=== PATIENT | female | born 1990 | race Caucasian/White ===

== ENCOUNTER 2016-12-25 13:13 | Outpatient (CLI) | payer OTHER ==
[2016-12-25] MEDS ORDERED: GADOBUTROL 7.5 MMOL/7.5 ML VIAL IVP ONE (14:16)
--- NOTE | 2016-12-25 16:00 | MRI Report ---
EXAM: MRI BRAIN AND IACS WITHOUT AND WITH CONTRAST EXAM DATE: 12/25/2016 01:27 PM. CLINICAL HISTORY: 26-year-old woman with dizziness. COMPARISON: None. TECHNIQUE: Multiplanar, multisequence T1-weighted and fluid-sensitive MR sequences of the brain were performed. Sequences optimized for routine evaluation. Other: High-resolution axial images through th e internal auditory canals were performed. Without and with IV Contrast: 5 mL Gadavist. FINDINGS: Parenchyma: No evidence of acute infarct on diffusion weighted sequence. Small focus of ill-defined e nhancement is present in the right lateral davin without corresponding FLAIR hyperintensity., There is corresponding susceptibility artifact on B0 sequence. 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 The remainder of the parenchyma demonstrates normal signal intensity on T1- and T2-weighted sequences without abnormal enhancement. Pituitary: Unremarkable. Ventricles and Extra-axial Spaces: Ventricles are symmetric and normal in size for age. Extra-axial s paces are unremarkable. No abnormal enhancement. Internal auditory canals: Patent without mass lesion or abnormal enhancement. Cochleas demonstrate no rmal fluid signal intensity without abnormal enhancement. The left superior semicircular canal demons trates narrowing and discontinuous fluid signal but no abnormal enhancement. The right semicircular c anals are normal. No evidence of semicircular canal dehiscence. Orbits: Unremarkable. Sinuses: Paranasal sinuses and mastoid air cells are clear. Major Vascular Flow Voids: Intact. Dural Venous Sinuses and Major Central Veins: Patent on post-contrast images. IMPRESSION: 1. Narrowing and discontinuous fluid signal in the left superior semicircular canal. No abnormal enha ncement. Finding is nonspecific, but may represent sequelae of labyrinthitis, stenosis, or possibly a rtifact. Absence of enhancement makes acute labyrinthitis unlikely. 2. 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 3. Otherwise normal contrast-enhanced MRI of the brain and IACs. [facility] Referring Provider Line: [phone] SITE ID: [id number]
== END 2016-12-25 13:14 | disposition home or self-care (01) ==
LOC: DI 13:13
PROVIDERS: ATTEND Pain Medicine Pain Medicine
DX: R42 Dizziness and giddiness (principal); R93.0 Abnormal findings on diagnostic imaging of skull and head, not elsewhere classified
CPT/HCPCS: 70543; A9585

== ENCOUNTER 2017-03-18 11:24 | Emergency (ER) | payer OTHER ==
[2017-03-18] MEDS ORDERED: ACETAMINOPHEN 325 MG TABLET PO STA (13:41)
[2017-03-18] MEDS ORDERED: DEXAMETHASONE 10 MG/ML VIAL PO STA (13:41)
[2017-03-18] MEDS ORDERED: DEXAMETHASONE 10 MG/ML VIAL ONE (13:45)
[2017-03-18] MEDS ORDERED: ACETAMINOPHEN 325 MG TABLET PO ONE (13:45)
[2017-03-18] MEDS ORDERED: CHERRY SYRUP 10 ML UDC PO ONE (13:46)
== END 2017-03-18 14:20 | disposition home or self-care (01) ==
DX: R07.89 Other chest pain (principal); J06.9 Acute upper respiratory infection, unspecified
CPT/HCPCS: 71020; 93005; 93010; 99283; A9270